=== PATIENT | male | born 1975 | race African-American/Black ===

== ENCOUNTER 2016-07-30 11:37 | Emergency (ER) | payer MEDICAID ==
[~2016-07-30] VITALS: Ht 185.4 cm; Wt 86.3 kg
[~2016-07-30 11:37] MED LIST: NOCURR
[2016-07-30] MEDS ORDERED: HYDROCODONE/ACETAMINOPHEN 5-325 MG TABLET PO ONE (13:30)
[2016-07-30 14:30] VITALS: BP 132/80
== END 2016-07-30 14:47 | disposition home or self-care (01) ==
LOC: EMS 11:39
DX: S53.401A Unspecified sprain of right elbow, initial encounter (principal); F17.210 Nicotine dependence, cigarettes, uncomplicated; F12.10 Cannabis abuse, uncomplicated; W22.8XXA Striking against or struck by other objects, initial encounter; Y93.89 Activity, other specified; Y92.9 Unspecified place or not applicable; Y99.9 Unspecified external cause status
CPT/HCPCS: 99284